=== PATIENT | male | born 1970 | race Asian ===

== ENCOUNTER 2018-10-12 01:25 | Emergency (ER) | payer BC, OTHER ==
--- NOTE | 2018-10-12 02:53 | Cat Scan Report ---
FINAL REPORT PROCEDURE: CT HEAD/BRAIN WO CON TECHNIQUE: Computerized tomography of the head was performed without contrast material. HISTORY: head and neck pain COMPARISON: No prior studies are available for comparison. FINDINGS: Skull and scalp: Normal. Paranasal sinuses: Mild opacification of the ethmoid sinuses. Ventricles and subarachnoid spaces: Normal. Cerebrum: No evidence of hemorrhage, acute infarction or mass . Cerebellum and brainstem: No evidence of hemorrhage, acute infarction or mass. Vasculature: Normal. Comments: None. IMPRESSION: There is no evidence of an acute intracranial process.
--- NOTE | 2018-10-12 02:55 | Cat Scan Report ---
FINAL REPORT PROCEDURE: CT CERVICAL SPINE WO CON TECHNIQUE: Computerized tomography of the cervical spine was performed from the skull base to T1 wit hout contrast material. HISTORY: head and neck pain COMPARISON: No prior studies are available for comparison. FINDINGS: The alignment of the vertebral segments is normal. There is slight loss of disc space height at the C 3-4 level. Mild spur formation off vertebral bodies at the C3-4 level is noted. No acute fracture or dislocation of the cervical spine. The spinal canal is adequate at all levels. IMPRESSION: There is no evidence of an acute fracture or dislocation. Mild cervical spondylosis..
--- NOTE | 2018-10-12 02:57 | XRay Report ---
FINAL REPORT PROCEDURE: XR FEMUR 2+V LT TECHNIQUE: LEFT femur radiographs, AP and lateral views. HISTORY: left thigh pain COMPARISON: No prior studies are available for comparison. FINDINGS: Fracture (s) and/or Dislocation(s): None . Joint space(s): Normal . Soft tissues: Normal . Bone mineralization: Normal . Foreign bodies: None . IMPRESSION: Normal Examination
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
[2018-10-12] MEDS ORDERED: BOOSTRIX IM ONE (03:34)
[2018-10-12] MEDS ORDERED: NORCO 5/325 PO ONE (03:34)
[2018-10-12] MEDS ORDERED: KEFLEX PO ONE ×2 (03:54→04:05)
[2018-10-12] MEDS ORDERED: KEFLEX ONE (03:55)
[2018-10-12] MEDS ORDERED: XYLOCAINE 1%/ EPI 1:100,000 INFILTRATI NR (04:00)
[2018-10-13 13:13] VITALS: BP 168/100
== END 2018-10-12 04:27 | disposition home or self-care (01) ==
LOC: ED 01:25
DX: S01.01XA Laceration without foreign body of scalp, initial encounter (principal); S16.1XXA Strain of muscle, fascia and tendon at neck level, initial encounter; M79.604 Pain in right leg; S00.03XA Contusion of scalp, initial encounter; V49.49XA Driver injured in collision with other motor vehicles in traffic accident, initial encounter; Y93.89 Activity, other specified; Y92.488 Other paved roadways as the place of occurrence of the external cause; Y99.8 Other external cause status
CPT/HCPCS: 70450; 72125; 82962; 90471; 90715